=== PATIENT | female | born 1990 | race Caucasian/White ===

== ENCOUNTER → 2017-06-01 08:04 | Outpatient (CLI) | payer OTHER ==
[2017-06-01 09:02] LABS: ALBUMIN 3.7 g/dL (3.4-5.0); BILIRUBIN - DIRECT 0.08 mg/dL (0.00-0.30); BILIRUBIN - INDIRECT 0.16 mg/dL (0.00-1.00); BILIRUBIN - TOTAL 0.24 mg/dL (0.2-1.3); PROTEIN - SERUM 7.6 g/dL (6.4-8.2)
== END | disposition home or self-care (01) ==
LOC: D.LAB 07:45 → D.US 08:00 → D.LAB 08:04
PROVIDERS: Internal Medicine Gastroenterology
DX: R10.9 Unspecified abdominal pain (principal); R11.0 Nausea

== ENCOUNTER → 2017-06-17 07:23 | Outpatient (CLI) | payer OTHER | END | disposition home or self-care (01) | LOC: D.NM 07:23 | DX: R10.9 Unspecified abdominal pain (principal) ==

== ENCOUNTER → 2017-08-08 09:57 | Outpatient (CLI) | payer OTHER | END | disposition home or self-care (01) | LOC: D.CT 09:57 | DX: R10.9 Unspecified abdominal pain (principal) ==

== ENCOUNTER 2018-06-04 15:48 | Outpatient (CLI) | payer MEDICAID ==
[2018-06-04 17:55] LABS: APPEARANCE TURBID (CLEAR); BILIRUBIN NEGATIVE (NEGATIVE); COLOR YELLOW (YELLOW); GLUCOSE NEGATIVE (NEGATIVE); KETONE NEGATIVE (NEGATIVE); NITRITE NEGATIVE (NEGATIVE); PROTEIN NEGATIVE (NEGATIVE); UROBILINOGEN NORMAL (NORMAL)
[2018-06-04 17:58] LABS: EPITHELIAL CELLS 0-5 /hpf (0-5); WHITE CELLS - URINE 0-5 /hpf (0-5)
[2018-06-04 17:59] LABS: AMORPHOUS SEDIMENT >1+ /lpf (NONE SEEN); BACTERIA FEW /hpf (NONE SEEN); RED CELLS - URINE RARE /hpf (0-5)
== END 2018-06-04 19:16 | disposition home or self-care (01) ==
LOC: D.LDO 15:48
PROVIDERS: Obstetrics & Gynecology
DX: O26.893 Other specified pregnancy related conditions, third trimester (principal); Z3A.30 30 weeks gestation of pregnancy

== ENCOUNTER 2019-11-21 08:03 | Day surgery (SDC) | payer OTHER ==
[~2019-11-21] VITALS: Ht 165.1 cm; Wt 80.7 kg
[~2019-11-21 08:03] MED LIST: CARAFATE1 G PO; PRILOSEC PO
[2019-11-21 08:26] LABS: HEMATOCRIT 44.4 % (36.0-48.0); HEMOGLOBIN 14.8 g/dL (12-16); MCH 29.1 pg (26.0-34.0); MCHC 33.3 g/dL (31.0-37.0); MCV 87.2 fL (80.0-100.0); MEAN PLATELET VOLUME 10.9 fL (7.4-10.4); RBC 5.09 10x6/uL (4.00-5.40); RDW 13.2 % (11.5-14.5); WBC 7.1 10x3/uL (4.8-10.8)
[2019-11-21 08:52] LABS: HCG SERUM NEGATIVE (NEGATIVE)
[2019-11-21 09:46] VITALS: BP 130/86; Ht 165.1 cm; Wt 80.7 kg
[2019-11-21] MEDS ORDERED: HYDROCODON-ACE1 EAC7 PO (13:04)
--- NOTE | 2019-11-21 14:35 | NUR ---
1430 PT ATE 2 ICE CREAMS AND MEDICATED FOR PAIN 9/10 PAIN.
--- NOTE | 2019-11-21 16:51 | NUR ---
1500 MEDICATED FOR PAIN TO ABDOMEN. INSTRUCTIONS GIVEN AND REVIEWED WITH FAMILY MEMBER. IV REMOVED AND PT GETTING DRESSED
== END 2019-11-21 15:30 | disposition home or self-care (01) ==
LOC: D.OPS 08:03 → D.PAN 10:30 → D.OPS 12:15 → D.PAN 12:15 → D.OPS 15:30
PROVIDERS: Anesthesiology; ATTEND Surgery
DX: K82.8 Other specified diseases of gallbladder (principal); R10.11 Right upper quadrant pain; M79.5 Residual foreign body in soft tissue